=== PATIENT | male | born 1965 | race Caucasian/White ===

== ENCOUNTER → 2016-05-07 | Outpatient (REF) | payer BC ==
[~2016-05-07] MED LIST: LSNP10T PO
[2016-05-07 16:47] LABS: BASOPHILS % (AUTO) 0 % (0-2); EOSINOPHILS # (AUTO) 0.2 10^3uL; EOSINOPHILS % (AUTO) 2 % (0-4); LYMPHOCYTES # (AUTO) 2.4 X10^3; MEAN CORPUSCULAR HGB CONC 35.1 g/dL (31.0-37.0); MEAN CORPUSCULAR VOLUME 89 FL (80-100); MEAN PLATELET VOLUME 9.9 FL (6.0-9.5); MONOCYTES # (AUTO) 0.8 X10^3; MONOCYTES % (AUTO) 9 % (3-11); NEUTROPHILS # (AUTO) 5.2 X10^3; NEUTROPHILS % (AUTO) 61 % (51-67); PLATELET COUNT 304 10^3uL (150-450); WHITE BLOOD COUNT 8.61 10^3uL (4.0-11.0)
[2016-05-07 17:05] LABS: ANION GAP 17.2 MEQ/L (3-15)
== END ==
LOC: LAB 15:32
PROVIDERS: ATTEND Physician Assistant Surgical
DX: I10 Essential (primary) hypertension (principal)
CPT/HCPCS: 80048; 85025

== ENCOUNTER 2016-05-19 09:00 | Outpatient (RCR) | payer BC | END 2016-06-26 12:00 | disposition home or self-care (01) | LOC: PT 09:00 | PROVIDERS: ATTEND Orthopaedic Surgery | DX: S83.241D Other tear of medial meniscus, current injury, right knee, subsequent encounter (principal); Z98.890 Other specified postprocedural states; M25.661 Stiffness of right knee, not elsewhere classified; X58.XXXD Exposure to other specified factors, subsequent encounter ==